=== PATIENT | female | born 1955 | race African-American/Black ===

== ENCOUNTER 2017-04-09 09:00 | Emergency (ER) | payer MEDICARE, MEDICAID ==
[~2017-04-09] VITALS: Ht 167.6 cm; Wt 73.0 kg
[~2017-04-09 09:00] MED LIST: ADVIL PM; MOTRIN; [UNRECOGNIZED DRUG - REMARK]
[2017-04-09] MEDS ORDERED: TRAMADOL 50MG TABLET PO ONE (09:30)
[2017-04-09] MEDS ORDERED: DIAZEPAM 2 MG TABLET PO ONE (09:30)
[2017-04-09 09:31] VITALS: BP 157/89
== END 2017-04-09 10:28 | disposition home or self-care (01) ==
LOC: ER 09:21
DX: M54.5 Low back pain (principal); G89.29 Other chronic pain; M54.30 Sciatica, unspecified side; I10 Essential (primary) hypertension; Z90.49 Acquired absence of other specified parts of digestive tract
CPT/HCPCS: 99283

== ENCOUNTER 2018-05-15 09:48 | Emergency (ER) | payer MEDICARE, MEDICAID ==
[~2018-05-15] VITALS: Ht 167.6 cm; Wt 73.0 kg
[2018-05-15] MEDS ORDERED: LOSA25TA12 PO (09:57)
[2018-05-15] MEDS ORDERED: HYDR25TA PO (09:57)
[2018-05-15] MEDS ORDERED: LACO150T2 PO (10:00)
[2018-05-15] MEDS ORDERED: ACETAMINOPHEN WITH CODEINE 300/30MG TABLET PO ONE (11:00)
[2018-05-15 11:49] VITALS: BP 132/60
== END 2018-05-15 11:49 | disposition home or self-care (01) ==
LOC: ER 09:51
DX: S92.592A Other fracture of left lesser toe(s), initial encounter for closed fracture (principal); X58.XXXA Exposure to other specified factors, initial encounter; Y93.9 Activity, unspecified; Y92.9 Unspecified place or not applicable; I10 Essential (primary) hypertension; R56.9 Unspecified convulsions; M54.30 Sciatica, unspecified side; Z86.73 Personal history of transient ischemic attack (TIA), and cerebral infarction without residual deficits; Z90.49 Acquired absence of other specified parts of digestive tract
CPT/HCPCS: 73630; 99284

== ENCOUNTER 2020-07-11 10:09 | Emergency (ER) | payer MEDICARE, MEDICAID ==
[~2020-07-11] VITALS: Ht 170.2 cm; Wt 72.0 kg
[~2020-07-11 10:09] MED LIST changes: +HYDR25TA PO; +LACO150T2 PO; +LOSA25TA26 PO; -MOTRIN
[2020-07-11 10:13] VITALS: BP 164/83
[2020-07-11] MEDS ORDERED: TRAMADOL 50MG TABLET PO ONE (11:00)
== END 2020-07-11 12:00 | disposition home or self-care (01) ==
LOC: ER 11:04
DX: M75.101 Unspecified rotator cuff tear or rupture of right shoulder, not specified as traumatic (principal); Z79.899 Other long term (current) drug therapy
CPT/HCPCS: 99283

== ENCOUNTER 2021-03-16 13:04 | Emergency (ER) | payer MEDICARE, MEDICAID ==
[~2021-03-16] VITALS: Ht 167.6 cm; Wt 73.0 kg
[2021-03-16] MEDS ORDERED: ONDANSETRON HCL 4MG/2ML INJ IV STA (13:20)
[2021-03-16] MEDS ORDERED: ACETAMINOPHEN 325MG TABLET PO ONE (14:00)
[2021-03-16] MEDS ORDERED: LORAZEPAM 1MG TABLET PO ONE (14:00)
[2021-03-16 14:38] LABS: BASOPHILS % 0.7 % (0.0-2.0); HEMATOCRIT. 34.9 % (36.0-48.0); HEMOGLOBIN. 11.5 g/dL (12.0-16.0); LYMPHOCYTES % 24.4 % (20.0-50.0); MEAN CORPUSCULAR HEMOGLOBIN 29.7 pg (28.0-32.0); MEAN PLATELET VOLUME 9.8 fl (7.4-10.4); MONOCYTES % 5.2 % (2.0-8.0); NEUTROPHILS % 68.7 % (40.0-76.0); PLATELET 202 x1000/uL (130-400); RED BLOOD CELL COUNT 3.87 mill/uL (4.2-5.4); RED CELL DISTRIBUTION WIDTH 14.2 % (11.6-14.6)
[2021-03-16 14:47] LABS: CHLORIDE 109 mEq/L (98-107)
[2021-03-16] MEDS ORDERED: LACOSAMIDE 100 MG TABLET PO SCH (15:45)
[2021-03-16] MEDS ORDERED: ONDA4TAB5 MT (15:58)
[2021-03-16] MEDS ORDERED: ACETAMINOPHEN WITH CODEINE 300/30MG TABLET PO NR (16:00)
[2021-03-16 16:17] VITALS: BP 160/65
== END 2021-03-16 16:35 | disposition home or self-care (01) ==
LOC: ER 13:17
DX: Z00.00 Encounter for general adult medical examination without abnormal findings (principal); R10.30 Lower abdominal pain, unspecified; F41.9 Anxiety disorder, unspecified; I10 Essential (primary) hypertension; R56.9 Unspecified convulsions; I69.351 Hemiplegia and hemiparesis following cerebral infarction affecting right dominant side; Z90.49 Acquired absence of other specified parts of digestive tract; Z98.84 Bariatric surgery status; Z98.890 Other specified postprocedural states
CPT/HCPCS: 36415; 74176; 80053; 80339; 83690; 85025; 85610; 96374; 99284; J2405

== ENCOUNTER 2023-07-14 21:49 | Emergency (ER) | payer MEDICARE, MEDICAID ==
[~2023-07-14] VITALS: Ht 170.2 cm; Wt 75.0 kg
[~2023-07-14 21:49] MED LIST changes: +ONDA4TAB5 MT
[2023-07-14 21:57] VITALS: O2SAT 98
[2023-07-15 02:26] LABS: CLARITY URINE TURBID (CLEAR); COLOR URINE YELLOW (YELLOW); GLUCOSE URINE NEGATIVE (NEGATIVE); KETONES URINE NEGATIVE (NEGATIVE); LEUKOCYTE ESTERASE URINE 3+ (NEGATIVE); NITRITE URINE NEGATIVE (NEGATIVE); OCCULT BLOOD URINE 3+ (NEGATIVE); PROTEIN URINE TRACE (NEGATIVE); SPECIFIC GRAVITY URINE 1.017 (1.005-1.030)
[2023-07-15 02:29] LABS: BACTERIA URINE 4+
[2023-07-15 02:44] LABS: *AMPHETAMINES SCREEN URINE NEGATIVE (NEGATIVE); *BARBITURATES SCREEN URINE NEGATIVE (NEGATIVE); *BENZODIAZEPINES SCREEN URINE NEGATIVE (NEGATIVE); *COCAINE SCREEN URINE NEGATIVE (NEGATIVE); CANNABINOID URINE SCREEN NEGATIVE (NEGATIVE); ECSTASY MDMA SCREEN URINE NEGATIVE (NEGATIVE); OPIATES URINE SCREEN NEGATIVE (NEGATIVE); PHENCYCLIDINE URINE SCREEN NEGATIVE (NEGATIVE)
[2023-07-15 03:24] LABS: HEMATOCRIT. 32.3 % (36.0-48.0); HEMOGLOBIN. 10.4 g/dL (12.0-16.0); MEAN CORPUSCULAR HEMOGLOBIN 29.5 pg (28.0-32.0); MEAN CORPUSCULAR HGB CONC 32.2 g/dL (31.0-37.0); MEAN CORPUSCULAR VOLUME 91.6 fL (81.0-99.0); MEAN PLATELET VOLUME 8.3 fl (7.4-10.4); PLATELET 242 x1000/uL (130-400); RED BLOOD CELL COUNT 3.53 mill/uL (4.2-5.4); WHITE BLOOD COUNT 12.2 x1000/uL (4.5-11.0)
[2023-07-15 03:30] LABS: DIFFERENTIAL COMMENT 1
[2023-07-15] MEDS ORDERED: ONDA4TAB50 MT (03:57)
[2023-07-15 04:40] VITALS: BP 141/64; PULSE 70; RESP 18; TEMP 98.4
[2023-07-15 05:36] LABS: SQUAMOUS EPITHELIAL CELL URINE FEW /lpf (RARE/1+)
[2023-07-15 05:45] LABS: YEAST URINE NONE SEEN
[2023-07-15 06:32] LABS: PLATELET ESTIMATE NORMAL
== END 2023-07-15 04:58 | disposition left against medical advice (07) ==
LOC: ER 21:49
DX: R53.1 Weakness (principal); R11.0 Nausea; I10 Essential (primary) hypertension; Z79.899 Other long term (current) drug therapy
CPT/HCPCS: 36415; 71045; 73030; 80305; 81003; 85025; 93005; 99285

== ENCOUNTER 2025-06-20 18:42 | Emergency (ER) | payer MEDICARE, MEDICAID ==
[~2025-06-20] VITALS: Ht 162.6 cm; Wt 65.0 kg
[~2025-06-20 18:42] MED LIST changes: +ASPI-1160 PO; +DIAZ2TAB3 PO; +FERR-63 PO; +LACO100T4 PO; +LORA10TA7 PO; +LOSA50TA41 PO; +ONDA4TAB50 MT
[2025-06-20 18:51] VITALS: O2SAT 96
[2025-06-20] MEDS: ACETAMINOPHEN WITH CODEINE 300/30MG TABLET PO ONE ×2 (19:18→21:23)
[2025-06-20] MEDS ORDERED: ONDANSETRON HCL 4MG/2ML INJ IV ONE (21:00)
[2025-06-20] MEDS ORDERED: MORPHINE SULFATE 4 MG/ML INJ (FOR IV/IM USE) IV ONE (21:00)
[2025-06-20] MEDS ORDERED: OXYCODONE HCL/ACETAMINOPHEN 5/325MG TABLET PO ONE (21:00)
[2025-06-20] MEDS ORDERED: T3 PO (22:33)
[2025-06-20] MEDS ORDERED: OXYC-100 MT (23:03)
[2025-06-21 00:15] VITALS: BP 145/77; PULSE 79; RESP 20; TEMP 37; O2SAT 98
== END 2025-06-21 00:19 | disposition home or self-care (01) ==
LOC: ER 18:42
DX: S42.022A Displaced fracture of shaft of left clavicle, initial encounter for closed fracture (principal); I10 Essential (primary) hypertension; M19.012 Primary osteoarthritis, left shoulder; Z79.82 Long term (current) use of aspirin; Z79.899 Other long term (current) drug therapy; Z85.3 Personal history of malignant neoplasm of breast; Z88.6 Allergy status to analgesic agent; W01.0XXA Fall on same level from slipping, tripping and stumbling without subsequent striking against object, initial encounter; Y92.009 Unspecified place in unspecified non-institutional (private) residence as the place of occurrence of the external cause; Y93.89 Activity, other specified; Y99.8 Other external cause status
CPT/HCPCS: 73030; 73060; 99284